=== PATIENT | male | born 1980 | race Hispanic/Latino ===

== ENCOUNTER 2020-05-07 06:25 | Day surgery (SDC) | payer BC ==
[~2020-05-07] VITALS: Ht 182.9 cm; Wt 90.9 kg
[~2020-05-07 06:25] MED LIST: CIALIS2.5 MG PO; CITALOPRAM HBR20 MG PO; CLARITIN10 M2 PO; TERBINAFINE HC250 MG PO; VALTREX1000 MG PO
--- NOTE | 2020-05-07 08:38 | NUR ---
05/07/20 0838 Karissa Bear 0832: PT ARRIVES TO AWAKE, BUT DROWSY. HE IS VERY CHATTY. NOT MUCH PAIN REPORTED.
[2020-05-07] MEDS ORDERED: IBUPROFEN600 MG PO (08:52)
[2020-05-07] MEDS ORDERED: OXYCODON-ACETA1 EAC2 PO (08:53)
[2020-05-07] MEDS ORDERED: ACETAMINOPHEN500 MG PO (08:53)
--- NOTE | 2020-05-07 17:32 | OR ---
[facility] [address] [place], [place] [address] Signed DATE OF OPERATION: 05/07/2020 SURGEON: Valentin Bonds MD PREOPERATIVE DIAGNOSIS: Symptomatic posterior thorax soft tissue mass. POSTOPERATIVE DIAGNOSIS: Submuscular posterior thoracic lipoma, 8 cm. PROCEDURE: Excision of submuscular soft tissue mass posterior thorax 8 cm. ANESTHESIA: Local with monitored anesthesia care; Sujata Parker CRNA; 20 mL of 0.25% Marcaine with epinephrine. INDICATION: This 39-year-old man is a patient of Dr. Breezy Anguiano of [place], [place] and also [facility]. He has had a soft tissue mass in the interscapular area for several years, which has become increasingly painful to him. His chiropractor recommended he consider excision of the mass. He is admitted at this time to undergo excision of the mass. He understands the risks of bleeding, infection, recurrence and so on. FINDINGS: Indeed the lesion was that of a lipoma. It was submuscular. It was lateral to the trapezius and submuscular to the latissimus dorsi muscle. It was excised completely. It's size measured 8 cm in length. DESCRIPTION OF PROCEDURE: The patient was brought to the operating room, placed in lateral decubitus position right side up. The area of the soft tissue mass which was in the superior aspect of the thorax had been marked prior to operation. The area was prepared with a chlorhexidine solution and draped sterilely. A 0.25% Marcaine with epinephrine injected transversely over the area of the mass. The incision was made and dissection carried through the dermis sharply and additional local anesthetic injected. Electrocautery was used to incise the soft tissue. Normal subcutaneous fat was noted and then, a fascial layer had divided. This revealed typical appearing multilobulated lipoma. Further dissection was undertaken more deeply and it was found to extend beneath the latissimus dorsi laterally Electronically Signed By: VALENTIN BONDS MD 05/07/20 1732 PATIENT NAME: DEDRICK XIE OPERATIVE REPORT DATE OF : 82 REPORT #: [id number] PHYSICIAN: VALENTIN BONDS MD PCP: NO PRIMARY CARE PHYSICIAN REPORT IS CONFIDENTIAL AND NOT TO BE RELEASED WITHOUT AUTHORIZATION [facility] [address] [place], [place] [address] Signed and was noted lateral to the trapezius muscle itself. Meticulous dissection was undertaken with electrocautery. Blood vessels encountered were generally secured with electrocautery. The lesion was rather wide and about the size of a tennis ball, though somewhat flattened out. Once excised, one could see that it extended beneath the muscular layers and was adjacent to the chest wall itself. There was no sign of connection to the intrathoracic space so far as could be told. Hemostasis was assured with a few interrupted 2-0 Vicryl sutures. The wound was closed in layers with interrupted 2-0 Vicryl and running subcuticular 3-0 Vicryl for the skin. Steri-Strips were applied as was an Acticoat silver sponge dressing. The patient was returned to the supine position and allowed to emerge from sedation and taken to the recovery room in good condition. BLOOD LOSS: Minimal. COMPLICATIONS: None. Valentin Bonds MD JM/MODL /[id number] cc: MARY Roldan MD Copies: TISHA ALBARRAN DC ~ Electronically Signed By: VALENTIN BONDS MD 05/07/20 1732 PATIENT NAME: DEDRICK XIE OPERATIVE REPORT DATE OF : 82 REPORT #: [id number] PHYSICIAN: VALENTIN BONDS MD PCP: NO PRIMARY CARE PHYSICIAN REPORT IS CONFIDENTIAL AND NOT TO BE RELEASED WITHOUT AUTHORIZATION
--- NOTE | 2020-05-11 11:04 | PATH ---
[facility] [address] [place], [place] [address] Signed SPECIMEN(S): A SUBMUSCULAR POSTERIOR THORAX MASS SPECIMEN SOURCE: A. SUBMUSCULAR POSTERIOR THORAX MASS CLINICAL HISTORY: Mid scapular mass. Excision of subfascial soft tissue mass on back. FINAL PATHOLOGIC DIAGNOSIS: Submuscular posterior thorax mass, excision: - Fibrolipoma. NAL:cml:C2NR MICROSCOPIC EXAMINATION: Histologic sections of all submitted blocks are examined by light microscopy. These findings, together with the gross examination, support the pathologic diagnosis. GROSS DESCRIPTION: The specimen, labeled "RO," and designated on the requisition "submuscular posterior thorax mass," is received in formalin and consists of a portion of yellow to brown-martínez soft tissue (7.2 x 5.4 x 2.7 cm). The specimen is inked blue and serially sectioned to reveal a homogenous, yellow-martínez fatty cut surface. Fountain Worker sections are submitted in cassettes (A1-A4). AC (under the direct supervision of a pathologist) The Gross Description was prepared using a voice recognition system. The report was reviewed for accuracy; however, sound-alike word errors, addition and/or deletions may occur. If there is any question about this report, please contact Client Services. PERFORMING LABORATORY: The technical component was performed by [employer], [address] [place] [id number] (Faculty Head: Polina Dugan MD; CLIA# [id number]). [facility] [address] [address] (CLIA# [id number]). Diagnostician: Joann Cox MD Pathologist Electronically Signed 05/11/2020 PATIENT NAME: DEDRICK XIE PATHOLOGY DATE OF : 82 REPORT #: [id number] PHYSICIAN: [facility] PCP: NO PRIMARY CARE PHYSICIAN REPORT IS CONFIDENTIAL AND NOT TO BE RELEASED WITHOUT AUTHORIZATION [address] [address] Signed Copies: ~ PATIENT NAME: DEDRICK XIE PATHOLOGY DATE OF : 82 REPORT #: [id number] PHYSICIAN: [facility] PCP: NO PRIMARY CARE PHYSICIAN REPORT IS CONFIDENTIAL AND NOT TO BE RELEASED WITHOUT AUTHORIZATION
== END 2020-05-07 09:30 | disposition home or self-care (01) ==
LOC: DS 06:25
PROVIDERS: ATTEND Surgery
PROC: 0KBH0ZZ Excision of Right Thorax Muscle, Open Approach (ICD-10-PCS; principal; 2020-05-07 06:45)
DX: D17.1 Benign lipomatous neoplasm of skin and subcutaneous tissue of trunk (principal); G47.33 Obstructive sleep apnea (adult) (pediatric)
CPT/HCPCS: 00300; J0690; J1100; J1885; J2001; J2250; J2405; J2704; J7121